=== PATIENT | female | born 1960 | race Caucasian/White ===

== ENCOUNTER 2025-02-22 10:33 | Emergency (ER) | payer BC, SELFPAY ==
[2025-02-22 10:38] VITALS: BP 179/96
--- NOTE | 2025-02-22 11:30 | ED.GENMED ---
History of Present Illness
<Jaja Estrada MD, Resident - Last Filed: 02/22/25 14:21>
General
Chief Complaint: Rectal Bleeding
Source: patient
Exam Limitations: none
Time Seen by Provider: 02/22/25 11:26
Nursing documentation reviewed up to this point in time: agreed with
History of Present Illness
History of Present Illness:
64yo F with a hx of who presents with subacute rectal bleeding.
Two days ago, the pt began having crampy abdominal pain. This developed into loose stools with some blood yesterday, which progressed into scant stool with more significant blood in the toilet bowl today. Has a remote hx of external hemorrhoids
(~20yr ago). Is not on any blood thinners. Last colonoscopy done in 2019, which was notable for some benign polyps. Denies any recent changes to stool consistency or shape. Denies any focal abdominal pain aside from intermittent global cramping
preceding BMs. Denies any hx of diverticulosis/itis. Has a hx of Martinez's esophagus, for which she gets upper endoscopies every 1-1.5 yrs. She takes pantoprazole daily, no missed doses. No current n/v. No f/c. Denies any recent sick contacts,
travel, or foods out of the ordinary. Denies any recent med changes. Denies preceding constipation, straining, anal pain. Remote hx smoking 20yr prior.
Past History
<Jaja Estrada MD, Resident - Last Filed: 02/22/25 14:21>
Past History
ED Past Medical History: GERD, HTN, Hypercholesterolemia and Other
ED Past Surgical History: Orthopedic (right wrist) and Other (hemorrhoidectomy)
Social History
Tobacco: Former smoker
Alcohol: None
Drug: None
Review of Systems
<Jaja Estrada MD, Resident - Last Filed: 02/22/25 14:21>
Review of Systems
Allergies reviewed?: Yes
All Other Systems: ROS reviewed and negative except as documented in HPI and ROS
Constitutional: Reports no symptoms
EENT: Reports no symptoms
Respiratory: Reports no symptoms
Cardiac: Reports no symptoms
ABD/GI: Reports abdominal pain (cramping), diarrhea and bloody stools
: Reports no symptoms
Musculoskeletal: Reports no symptoms
Skin: Reports no symptoms
Neurological: Reports no symptoms
Psychiatric: Reports no symptoms
Phy Exam
<Jaja Estrada MD, Resident - Last Filed: 02/22/25 14:21>
General Physical Exam
General Presentation: mild distress
General age: appears stated age
General Skin: warm and dry
General Habitus: normal
General Mental: alert
Cardiovascular Exam
Cardiovascular Exam: regular rate/rhythm and no edema
Heart Sounds: normal
Pulmonary Exam
Pulmonary Exam: no respiratory distress
Gastrointestinal Exam
Gastrointestinal Exam: non tender, soft and non distended
Neurological Exam
Neurological Exam: alert
Musculoskeletal Exam
Musculoskeletal Exam: no edema
Skin Exam
Skin Exam: normal color
Psychiatric Exam
Psychiatric Exam: normal mood/affect
Course
<Jaja Estrada MD, Resident - Last Filed: 02/22/25 14:21>
Orders/Labs/Results
Orders:
Orders
02/22/25 11:38
Complete Blood Count/With Diff Urgent
Comprehensive Metabolic Panel Urgent
02/22/25 12:13
Stool Culture Urgent
DAMIAN Source: Feces/Stool
Specimen Description:
02/22/25 12:28
CT Abd/pelvis W Iv Cont Urgent
Comment:
Reason For Exam: eval lower GI bleed
Abnormal Lab Results
02/22/25
11:38
MCH 31.1 H pg
(27.0-31.0)
Neutrophils % 77.3 H %
(42.2-75.2)
Lymphocytes % 15.4 L %
(20.5-51.1)
Glucose 110 H mg/dl
(70-99)
02/22/25 11:38
02/22/25 11:38
Vital Signs
Initial and Last Documented VS:
Initial Vital Signs
Temp Pulse Resp BP Pulse Ox
98 F 83 16 179/96 98
02/22/25 10:38 02/22/25 10:38 02/22/25 10:38 02/22/25 10:38 02/22/25 10:38
Last Documented Vital Signs
Temp Pulse Resp BP Pulse Ox
98 F 83 16 133/67 97
02/22/25 10:38 02/22/25 10:38 02/22/25 10:38 02/22/25 12:00 02/22/25 12:30
<Ming H. Apoorva, DO - Last Filed: 02/22/25 12:31>
Orders/Labs/Results
Orders:
Orders
02/22/25 11:38
Complete Blood Count/With Diff Urgent
Comprehensive Metabolic Panel Urgent
02/22/25 12:13
Stool Culture Urgent
DAMIAN Source: Feces/Stool
Specimen Description:
02/22/25 12:28
CT Abd/pelvis W Iv Cont Urgent
Comment:
Reason For Exam: eval lower GI bleed
Abnormal Lab Results
02/22/25
11:38
MCH 31.1 H pg
(27.0-31.0)
Neutrophils % 77.3 H %
(42.2-75.2)
Lymphocytes % 15.4 L %
(20.5-51.1)
Glucose 110 H mg/dl
(70-99)
02/22/25 11:38
02/22/25 11:38
Vital Signs
Initial and Last Documented VS:
Initial Vital Signs
Temp Pulse Resp BP Pulse Ox
98 F 83 16 179/96 98
02/22/25 10:38 02/22/25 10:38 02/22/25 10:38 02/22/25 10:38 02/22/25 10:38
Last Documented Vital Signs
Temp Pulse Resp BP Pulse Ox
98 F 83 16 133/67 97
02/22/25 10:38 02/22/25 10:38 02/22/25 10:38 02/22/25 12:00 02/22/25 12:30
<Jaja Estrada MD, Resident - Last Filed: 02/22/25 14:21>
MDM/Problems Addressed
Differential Diagnosis Includes:
Ddx:
Infectious diarrhea (salmonella vs. shigella; ehec less likely given clinical picture)
Diverticulosis w bleed
Duodenal ulcer (although takes pantoprazole)
Internal vs. external hemorrhoids (less likely given 3 day bleed, volume, remote hx hemorrhoids)
Anal fissures (less likely given lack of preceding straining, pain)
CRC (unlikely given up to date colonoscopy)
MDM/Problems Addressed:
- CBC, CMP
- Stool cx
- CT a/p with IV contrast
<Jaja Estrada MD, Resident - Last Filed: 02/22/25 14:21>
*Pulse Oximetry
SaO2: 98
Oxygen Mode of Delivery: Room air
Patient hypoxic: no
*Critical Care Note
Total Time (30-74mins, 75-104mins- exclusive of procedures): Not Applicable
<Jaja Estrada MD, Resident - Last Filed: 02/22/25 14:21>
Update Note
Update Note:
Hgb 14.2, r/o acute blood loss anemia
CT a/p IV contrast:
Nonspecific colitis involving the mid descending colon through the mid sigmoid colon. Diverticulosis without associated inflamed diverticulum to suggest diverticulitis. No associated active gastrointestinal hemorrhage identified. No free air or
perforation. Minimal ascites. No focal collection or abscess.
Infectious vs. inflammatory colitis vs. bleeding diverticulosis.
Will discharge with empiric abx to cover for infectious colitis, and stool cx results can be followed up outpatient. Pt not at risk of hemorrhagic shock, afebrile, well-appearing, normal hgb. Safe for discharge. Should follow up with GI outpatient.
ED Attending Note
<Jaja Estrada MD, Resident - Last Filed: 02/22/25 14:21>
-
Portions of this chart may have been created with voice recognition software.� Occasional wrong word or��sound alike� substitutions may have occurred due to the inherent limitations of voice recognition software.
<Ming Guerin DO - Last Filed: 02/22/25 12:31>
ED Attending Note
Patient seen and examined by attending physician: Yes
I performed a history and physical exam of patient and discussed management with resident, I reviewed resident's note and agree with documented findings and plan of care.: Yes
ED Attending Note:
I agree with Jaja's note
Patient presents with crampy abdominal pain, loose stools which have progressed from watery diarrhea to primarily bloody. No fever or chills. Abdominal pain is not constant and only occurs prior to having a bowel movement. No recent travel. No
exposure to farm animals/reptiles. Patient's home has municipal water. No sick contacts. No recent use of antibiotics.
General: Awake, Alert, Oriented X3. No acute distress.
Vitals: Hypertensive
Head: Atraumatic
Eyes: Pupils equal, EOMI
Throat: Airway intact, no exudates
Neck: Trachea midline
Abd: Soft, no reproducible abdominal pain, no pulsatile mass
Neuro: Nonfocal
Skin: Warm, dry, no rash
Extremities: pulses equal b/l, no edema
Patient is quite stable. Benign abdominal exam. Hemoglobin is normal. Will obtain a CT to look for colitis or other structural abnormality. Suspect this is more of a infectious diarrhea
Discharge Plan
Departure
Patient Disposition: Home (Routine Discharge)
Date of Disposition: 02/22/25
Time of Disposition: 14:13
Patient with high blood pressure during this ER visit?: Yes
Condition: Good
Covid-19: Not Applicable
Discharge Problem:
Bloody stool
Instructions: Bloody Stools, Adult (DC)
Prescriptions:
New
amoxicillin-pot clavulanate [Augmentin] 500-125 mg tablet
1 tab PO TID 5 Days Qty: 15 0RF
No Action
metoprolol succinate 25 mg tablet extended release 24 hr
25 mg PO DAILY
rosuvastatin 10 mg tablet
10 mg PO HS
cranberry
1 tab PO BID
esomeprazole magnesium [Nexium] 20 mg Capsule,Delayed Release(Dr/Ec)
20 mg PO HS
acetaminophen [Tylenol] 325 mg Tablet
650 mg PO BIDPRN PRN (Reason: mild pain)
Theragen Tablet
1 tab PO NOON
citalopram 20 mg Tablet
20 mg PO NOON
bismuth subsalicylate [Pepto-Bismol] 262 mg/15 mL Suspension
524 mg PO DAILYPRN PRN (Reason: diarrhea)
pantoprazole [Protonix] 40 mg tablet,delayed release (DR/EC)
40 mg PO DAILY
Referrals:
UNKNOWN - PT DOES,NOT KNOW [Family Provider]
Aniya Dale MD [Active, Gastroenterology] - Follow up in 2-3 days
Activity Restrictions/Additional Instructions:
You were seen in the ED for rectal bleeding. Your bloodwork did not show any anemia from blood loss. CT scan of your abdomen showed nonspecific colitis (inflammation of colon) and presence of diverticula (benign pouches in the colon, which can
bleed). We have prescribed you an antibiotic, augmentin (500mg tab 3x/day for 5 days), to cover in the case of infectious colitis. We also ordered stool cultures, which should come back in a few days. You should follow up with a predatory game hunter
(referral included) for further evaluation.
If you had significant volumes of additional rectal blood loss or worsening abdominal pain, return to the ED.
Interventions
Interventions:
*Risk Screen - Suicide Last Done: 02/22/25 10:38
*General Assessment Last Done: 02/22/25 11:31
*Neglect/Abuse Screening Last Done: 02/22/25 10:38
*ED- Fall Risk Assessment Last Done: 02/22/25 11:31
*ED COVID-19 Vaccine History Last Done: 02/22/25 11:31
*ED Influenza Vaccine History Last Done: 02/22/25 11:31
MS-Yiyuhd-Ycvryrhsuh Assessment Last Done: 02/22/25 11:31
ED- Cardiac Assessment Last Done: 02/22/25 11:31
ED- Pulmonary Assessment Last Done: 02/22/25 11:31
Discharge Date and Time
Print Language: NAURUAN
[2025-02-22 11:36] VITALS: BP 132/73
[2025-02-22 11:56] LABS: Hematocrit 41.3 % (37.0-47.0); Hemoglobin 14.2 g/dL (12.0-16.0); Mean Corp Hgb Conc. 34.4 g/dL (33.0-37.0); Mean Corpuscular Volume 90.6 fL (81.0-99.0); Nucleated Red Blood Cells % 0 %; Platelet Count 255 10^3/uL (130-400); Red Cell Dist. Width 11.9 % (11.5-14.5)
[2025-02-22 12:00] VITALS: BP 133/67
[2025-02-22 12:12] LABS: ALT (SGPT) 18 U/L (0-35); AST (SGOT) 20 U/L (14-36); Albumin 4.5 g/dl (3.5-5.0); Alkaline Phosphatase 116 U/L (38-126); Blood Urea Nitrogen 9 mg/dl (7-17); Calcium 9.6 mg/dl (8.4-10.2); Carbon Dioxide 27 mmol/L (22-30); Chloride 105 mmol/L (98-107); Estimated Creatinine Clearance 70 ml/min; Glucose 110 mg/dl (70-99); Potassium 4.0 mmol/L (3.5-5.1); Sodium 137 mmol/L (135-145); Total Protein 7.6 g/dl (6.3-8.2); eGFR > 60.00
--- NOTE | 2025-02-22 14:33 | ED.GENMED ---
History of Present Illness
General
Chief Complaint: Rectal Bleeding
Time Seen by Provider: 02/22/25 11:26
Past History
Past History
ED Past Medical History: GERD, HTN, Hypercholesterolemia and Other
ED Past Surgical History: Orthopedic (right wrist) and Other (hemorrhoidectomy)
Social History
Tobacco: Former smoker
Alcohol: None
Drug: None
Course
Orders/Labs/Results
Orders:
Orders
02/22/25 11:38
Complete Blood Count/With Diff Urgent
Comprehensive Metabolic Panel Urgent
02/22/25 12:13
Stool Culture Urgent
DAIMAN Source: Feces/Stool
Specimen Description:
02/22/25 12:28
CT Abd/pelvis W Iv Cont Urgent
Comment:
Reason For Exam: eval lower GI bleed
Abnormal Lab Results
02/22/25
11:38
MCH 31.1 H pg
(27.0-31.0)
Neutrophils % 77.3 H %
(42.2-75.2)
Lymphocytes % 15.4 L %
(20.5-51.1)
Glucose 110 H mg/dl
(70-99)
02/22/25 11:38
02/22/25 11:38
Vital Signs
Initial and Last Documented VS:
Initial Vital Signs
Temp Pulse Resp BP Pulse Ox
98 F 83 16 179/96 98
02/22/25 10:38 02/22/25 10:38 02/22/25 10:38 02/22/25 10:38 02/22/25 10:38
Last Documented Vital Signs
Temp Pulse Resp BP Pulse Ox
98 F 83 16 133/67 97
02/22/25 10:38 02/22/25 10:38 02/22/25 10:38 02/22/25 12:00 02/22/25 12:30
*Pulse Oximetry
SaO2: 97
Oxygen Mode of Delivery: Room air
ED Attending Note
-
Portions of this chart may have been created with voice recognition software.� Occasional wrong word or��sound alike� substitutions may have occurred due to the inherent limitations of voice recognition software.
Discharge Plan
Departure
Patient Disposition: Home (Routine Discharge)
Date of Disposition: 02/22/25
Time of Disposition: 14:13
Patient with high blood pressure during this ER visit?: Yes
Condition: Good
Covid-19: Not Applicable
Discharge Problem:
Bloody stool
Instructions: Bloody Stools, Adult (DC)
Prescriptions:
New
amoxicillin-pot clavulanate [Augmentin] 500-125 mg tablet
1 tab PO TID 5 Days Qty: 15 0RF
No Action
metoprolol succinate 25 mg tablet extended release 24 hr
25 mg PO DAILY
rosuvastatin 10 mg tablet
10 mg PO HS
cranberry
1 tab PO BID
esomeprazole magnesium [Nexium] 20 mg Capsule,Delayed Release(Dr/Ec)
20 mg PO HS
acetaminophen [Tylenol] 325 mg Tablet
650 mg PO BIDPRN PRN (Reason: mild pain)
Theragen Tablet
1 tab PO NOON
citalopram 20 mg Tablet
20 mg PO NOON
bismuth subsalicylate [Pepto-Bismol] 262 mg/15 mL Suspension
524 mg PO DAILYPRN PRN (Reason: diarrhea)
pantoprazole [Protonix] 40 mg tablet,delayed release (DR/EC)
40 mg PO DAILY
Referrals:
Aniya Dale MD [Active, Gastroenterology] - Follow up in 2-3 days
UNKNOWN - PT DOES,NOT KNOW [Family Provider]
Activity Restrictions/Additional Instructions:
You were seen in the ED for rectal bleeding. Your bloodwork did not show any anemia from blood loss. CT scan of your abdomen showed nonspecific colitis (inflammation of colon) and presence of diverticula (benign pouches in the colon, which can
bleed). We have prescribed you an antibiotic, augmentin (500mg tab 3x/day for 5 days), to cover in the case of infectious colitis. We also ordered stool cultures, which should come back in a few days. You should follow up with a floor worker well service
(referral included) for further evaluation of colitis.
If you had significant volumes of additional rectal blood loss or worsening abdominal pain, return to the ED.
Interventions
Interventions:
*Risk Screen - Suicide Last Done: 02/22/25 10:38
*General Assessment Last Done: 02/22/25 11:31
*Neglect/Abuse Screening Last Done: 02/22/25 10:38
*ED- Fall Risk Assessment Last Done: 02/22/25 11:31
*ED COVID-19 Vaccine History Last Done: 02/22/25 11:31
*ED Influenza Vaccine History Last Done: 02/22/25 11:31
XL-Mzwnps-Wqlsntucom Assessment Last Done: 02/22/25 11:31
ED- Cardiac Assessment Last Done: 02/22/25 11:31
ED- Pulmonary Assessment Last Done: 02/22/25 11:31
Discharge Date and Time
Print Language: ROMANIAN
== END 2025-02-22 15:11 | disposition home or self-care (01) ==
LOC: EMR 10:33
PROVIDERS: EMERGENCY PHYSICIAN Emergency Medicine
DX: K92.1 Melena (principal); I10 Essential (primary) hypertension; E78.00 Pure hypercholesterolemia, unspecified; K21.9 Gastro-esophageal reflux disease without esophagitis; K22.70 Barrett's esophagus without dysplasia; Z87.891 Personal history of nicotine dependence
CPT/HCPCS: 99284; 74177; 80053; 85025; Q9967